=== PATIENT | male | born 1990 | race African-American/Black ===

== ENCOUNTER 2016-08-11 06:25 | Emergency (ER) | payer BC ==
[2016-08-11 06:37] VITALS: BP 133/78; PULSE 89; TEMP 98.1; BMI 25.0
[2016-08-11] MEDS ORDERED: IBUPROFEN 600 MG TABLET (FP) PO ONE ×2 (07:39→07:41)
--- NOTE | 2016-08-11 08:11 | PDOC ---
History of Present Illness - General Chief Complaint: Injury Stated Complaint: INJURY LT HAND Time Seen by Provider: 08/11/16 07:23 History Source: Patient Exam Limitations: No Limitations - History of Present Illness Initial Comments: 08/11/16 08:05 26-year-old male presents the ED with complaints of left hand pain. Patient states he punched a wall around 12 midnight and this morning woke up with increased pain and swelling. Patient denies discomfort to the fingers but complaining of pain over the fifth knuckle. Patient denies previous injury to the affected area sensory changes distally. Timing/Duration: 4-6 hours Severity: mild Associated Symptoms: reports: denies symptoms Past History - Travel Traveled outside of the country in the last 30 days: No Close contact w/someone who was outside of country & ill: No - Past Medical History Allergies/Adverse Reactions: Allergies Allergy/AdvReac Type Severity Reaction Status Date / Time No Known Allergies Allergy Verified 08/11/16 06:35 Home Medications: Ambulatory Orders NK [No Known Home Medication] 08/11/16 Other medical history: Denies - Immunization History Immunization Up to Date: No - Psycho/Social/Smoking Cessation Hx Anxiety: No Suicidal Ideation: No Smoking History: Never smoked Have you smoked in the past 12 months: No Information on smoking cessation initiated: No Hx Alcohol Use: No Drug/Substance Use Hx: No Substance Use Type: Alcohol Patient Lives Alone: No Lives with/in: parents Review of Systems - Review of Systems Able to Perform ROS?: Yes Constitutional: No: Symptoms Reported Musculoskeletal: Yes: Joint Pain (left hand), Joint Swelling (left hand) Neurological: No: Numbness, Paresthesia, Tingling *Physical Exam - Vital Signs Last Vital Signs Temp Pulse Resp BP Pulse Ox 98.1 F 89 19 133/78 98 08/11/16 06:33 08/11/16 06:33 08/11/16 06:33 08/11/16 06:33 08/11/16 06:33 - Physical Exam General Appearance: Yes: Nourished, Appropriately Dressed. No: Apparent Distress Extremity: positive: Normal Capillary Refill. negative: Normal Inspection ( Patient with diffuse edema over the left fifth metatarsal extending to the pip joint. There is no crepitus with movement or deformity. Superficial abrasion over the PIP joint.), Normal Range of Motion ED Treatment Course - Medications Given in the ED: ED Medications Discontinued Medications Generic Name Dose Route Start Last Admin Trade Name Pierre PRN Reason Stop Dose Admin Ibuprofen 600 mg 08/11/16 07:39 08/11/16 07:43 Motrin - PO 08/11/16 07:40 600 mg ONCE ONE Administration Medical Decision Making - Medical Decision Making 08/11/16 08:00 Patient injury to the left fifth metatarsal after punching a wall. Patient exam had edema with no crepitus or deformity. Patient unable to make a fist secondary to swelling and discomfort. Patient ordered for x-ray and Motrin. 08/11/16 08:09 X-ray reviewed and there is no signs of fracture or dislocation or other acute findings. Patient will be discharged home with supportive care including icing, NSAIDs and rest. *DC/Admit/Observation/Transfer Diagnosis at time of Disposition: Contusion of left hand Qualifiers: Encounter type: initial encounter Qualified Code(s): S60.222A - Contusion of left hand, initial encounter - Discharge Dispostion Disposition: HOME Condition at time of disposition: Good - Patient Instructions Printed Discharge Instructions: DI for Contusion Additional Instructions: Your x-ray showed no signs of fracture. I recommend to rest area, apply ice to area x 36 hrs, and take NSAIDs such as Motrin.
== END 2016-08-11 08:26 | disposition home or self-care (01) ==
LOC: JER 06:25 → SUPCPDRO 06:25 → JER 08:26
DX: S60.222A Contusion of left hand, initial encounter (principal); W22.8XXA Striking against or struck by other objects, initial encounter; Y93.89 Activity, other specified; Y92.89 Other specified places as the place of occurrence of the external cause
CPT/HCPCS: 73130-TC-LT; 99282-25